=== PATIENT | male | born 1970 | race American Indian/Alaskan Native ===

== ENCOUNTER 2018-07-22 15:57 | Emergency (ER) | payer OTHER ==
--- NOTE | 2018-07-22 16:24 | Emergency Department Report ---
Blank Doc - Documentation Documentation: This is a 47-year-old male that presents with left lip and facial swelling. This initial assessment/diagnostic orders/clinical plan/treatment(s) is/are subject to change based on patient's health status, clinical progression and re- assessment by fellow clinical providers in the ED. Further treatment and workup at subsequent clinical providers discretion. Patient/guardians urged not to elope from the ED as their condition may be serious if not clinically assessed and managed. Initial orders include: 1- Patient sent to [facility] for further evaluation and treatment
[2018-07-22 16:25] VITALS: BP 115/73
--- NOTE | 2018-07-22 18:37 | Emergency Department Report ---
Abscess Boil HPI - HPI Chief Complaint: Skin/Abscess/Foreign Body Stated Complaint: RT SIDE FACE/LIP SWOLLEN Time Seen by Provider: 07/22/18 16:23 Duration: 3 Days Location: Head Severity: Moderate History: Yes Pain, No Fever, No Purulent Drainage, No Numbness, No Foreign Body, No Previous History, No Insect Bite HPI: This is a 47-year-old -[place] male who presents with an abscess to right temporal and left lower lip for 3 days. Patient states he woke up with symptoms a few days ago that progressed yesterday. He denies difficulty swallowing, tongue swelling, fever, cough, myalgia, numbness or tingling. Home Medications: Previous Rx's Medication Instructions Recorded Last Taken Type Clindamycin [Clindamycin CAP] 300 mg PO Q8H #21 cap 07/22/18 Unknown Rx Sulfamethoxazole/Trimethoprim 1 each PO BID #14 tablet 07/22/18 Unknown Rx [Bactrim DS TAB] Allergies/Adverse Reactions: Allergies Allergy/AdvReac Type Severity Reaction Status Date / Time codeine Allergy Anaphylaxis Verified 07/22/18 16:25 vancomycin Allergy Hives Verified 07/22/18 16:25 ED Review of Systems ROS: Stated complaint: RT SIDE FACE/LIP SWOLLEN Other details as noted in HPI Constitutional: denies: chills, fever Respiratory: denies: cough, shortness of breath, wheezing Cardiovascular: denies: chest pain, palpitations Gastrointestinal: denies: abdominal pain, nausea, diarrhea Skin: lesions (abscess to right temporal and left side of the lower lip). denies: rash Neurological: denies: headache, weakness, paresthesias Psychiatric: denies: anxiety, depression ED Past Medical Hx - Past Medical History Previous Medical History?: Yes Hx Diabetes: Yes Hx HIV: Yes - Surgical History Past Surgical History?: No - Social History Smoking Status: Never Smoker Substance Use Type: None - Medications Home Medications: Home Medications Medication Instructions Recorded Confirmed Last Taken Type Clindamycin [Clindamycin CAP] 300 mg PO Q8H #21 cap 07/22/18 Unknown Rx Sulfamethoxazole/Trimethoprim 1 each PO BID #14 tablet 07/22/18 Unknown Rx [Bactrim DS TAB] ED Abscess Boil Physical Exam - Exam General: Vital signs noted. No distress. Alert and acting appropriately. Front/Back of Body, Lg (Color): 1 - Half a centimeter nonfluctuant nodule to right temporal, tenderness, surrounding cellulitis 2 - Half a centimeter nonfunctional with nodule to the left lateral lower lip, tenderness, no surrounding cellulitis. Size: 1 cm Exam: Yes Tenderness, Yes Surrounding Cellulites/Erythema, Yes Normal Neurologic Exam, Yes Normal Circulation, No Fluctuance, No Lymphangitis, No Crepitation, No Heart Murmur ED Course Vital Signs 07/22/18 16:23 Temperature 98.8 F Pulse Rate 67 Respiratory 20 Rate Blood Pressure 115/73 O2 Sat by Pulse 99 Oximetry Critical care attestation.: If time is entered above; I have spent that time in minutes in the direct care of this critically ill patient, excluding procedure time. ED Medical Decision Making - Lab Data Result diagrams: 07/22/18 18:35 Lab Results 07/22/18 Range/Units 18:35 WBC 6.6 (4.5-11.0) K/mm3 RBC 4.29 (3.65-5.03) M/mm3 Hgb 12.7 (11.8-15.2) gm/dl Hct 37.8 (35.5-45.6) % MCV 88 (84-94) fl MCH 30 (28-32) pg MCHC 34 (32-34) % RDW 14.1 (13.2-15.2) % Plt Count 228 (140-440) K/mm3 - Medical Decision Making Patient is stable and examined by me. No acute signs of distress noted. Obtained CBC, unremarkable. Patient will be treated for cellulitis and abscess of face with clindamycin and Keflex for 7 days. Discussed plan with patient. Educated patient and spouse on follow up plan to reevaluate wound in 2-3 days with a primary care provider. Patient agrees to ED plan of care. Given information on when to return to the emergency room. Discharged home and follow up with PCP in 2-3 days. ED Disposition Clinical Impression: Abscess Cellulitis Qualifiers: Site of cellulitis: face Qualified Code(s): L03.211 - Cellulitis of face Disposition: DC-01 TO HOME OR SELFCARE Is pt being admited?: No Does the pt Need Aspirin: No Condition: Stable Instructions: Abscess (ED) Additional Instructions: Complete full course of antibiotics as prescribed. Take naproxen, ibuprofen, or Tylenol every 6-8 hours as needed for pain. Follow-up with your primary care provider if symptoms are not improving as discussed. Prescriptions: Sulfamethoxazole/Trimethoprim [Bactrim DS TAB] 1 each PO BID #14 tablet Clindamycin [Clindamycin CAP] 300 mg PO Q8H #21 cap Referrals: [facility] [Outside] - 3-5 Days [facility] [Outside] - 3-5 Days [facility] [Outside] - 3-5 Days Forms: Work/School Release Form(ED), Accompanied Note Time of Disposition: 19:40
[2018-07-22 18:46] LABS: Hematocrit 37.8 % (35.5-45.6); Hemoglobin 12.7 gm/dl (11.8-15.2); Mean Corpuscular HGB Conc 34 % (32-34); Mean Corpuscular Volume 88 fl (84-94); Platelet Count 228 K/mm3 (140-440); Red Blood Count 4.29 M/mm3 (3.65-5.03); Red Cell Distribution Width 14.1 % (13.2-15.2)
[2018-07-22 21:10] LABS: Eosinophils % (Manual) 0 % (0.0-4.3); Total Cells Counted 100
[2018-07-22 21:11] LABS: Anisocytosis 1+
[2018-07-22 21:12] LABS: Platelet Estimate Consistent w Auto
== END 2018-07-22 20:08 | disposition home or self-care (01) ==
LOC: ED 15:57
DX: K12.2 Cellulitis and abscess of mouth (principal); L03.211 Cellulitis of face; L02.01 Cutaneous abscess of face; E11.9 Type 2 diabetes mellitus without complications; Z88.6 Allergy status to analgesic agent; Z88.1 Allergy status to other antibiotic agents
CPT/HCPCS: 36415; 85007; 85025; 99283

== ENCOUNTER 2018-08-01 10:29 | Emergency (ER) | payer OTHER ==
[2018-08-01 10:45] VITALS: BP 148/76
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
--- NOTE | 2018-08-01 14:09 | XRay Report ---
PROCEDURE: XR HAND 3+V RT TECHNIQUE: 3 views right hand HISTORY: right hand pain COMPARISONS: None FINDINGS: There is a comminuted right fifth distal metacarpal shaft and neck fracture with minimal angulation. Otherwise unremarkable exam. IMPRESSION: Boxer's fracture right fifth metacarpal with mild comminution. Minimal angulation.. This document is electronically signed by Debbie Perdomo MD., Aug 01 2018 02:07:34 PM ET
== END 2018-08-01 11:20 | disposition home or self-care (01) ==
LOC: ED 10:29
DX: S62.356A Nondisplaced fracture of shaft of fifth metacarpal bone, right hand, initial encounter for closed fracture (principal); E11.9 Type 2 diabetes mellitus without complications; Z21 Asymptomatic human immunodeficiency virus [HIV] infection status; Z88.5 Allergy status to narcotic agent; Z88.1 Allergy status to other antibiotic agents; X58.XXXA Exposure to other specified factors, initial encounter; Y93.89 Activity, other specified; Y92.89 Other specified places as the place of occurrence of the external cause; Y99.8 Other external cause status

== ENCOUNTER 2018-10-20 23:10 | Emergency (ER) | payer SELFPAY ==
[2018-10-20 23:16] VITALS: BP 139/79
--- NOTE | 2018-10-20 23:46 | XRay Report ---
RIGHT SHOULDER 3 VIEWS INDICATION / CLINICAL INFORMATION: Pain in right shoulder. COMPARISON: None available. FINDINGS: BONES and JOINT(S): No acute fracture or subluxation. A large and these of 5 is seen along the inferi or margin of the acromion. Mild arthritis is seen along the AC joint. The glenohumeral joint is maint ained. SOFT TISSUES: No significant abnormality. ADDITIONAL FINDINGS: None. IMPRESSION: 1. No acute findings. 2. Degenerative changes of the right shoulder as above with probable impingement of the rotator cuff. Please correlate with the clinical findings. Signer Name: Nabil Hawthorne MD Signed: 10/20/2018 11:41 PM Workstation Name: [id number]
[2018-10-21] MEDS ORDERED: ULTRAM PO ONE (00:24)
[2018-10-21] MEDS ORDERED: DELTASONE PO ONE (00:24)
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
== END 2018-10-21 01:07 | disposition home or self-care (01) ==
LOC: ED 23:10
DX: S46.911A Strain of unspecified muscle, fascia and tendon at shoulder and upper arm level, right arm, initial encounter (principal); I10 Essential (primary) hypertension; E11.9 Type 2 diabetes mellitus without complications; Z21 Asymptomatic human immunodeficiency virus [HIV] infection status; Z79.899 Other long term (current) drug therapy; Z88.5 Allergy status to narcotic agent; Z88.8 Allergy status to other drugs, medicaments and biological substances; V89.2XXA Person injured in unspecified motor-vehicle accident, traffic, initial encounter; Y93.89 Activity, other specified; Y92.89 Other specified places as the place of occurrence of the external cause; Y99.8 Other external cause status
CPT/HCPCS: 73030; 99283; J7512